=== PATIENT | male | born 1970 | race Caucasian/White ===

== ENCOUNTER 2023-06-05 12:28 | Inpatient (IN) ==
[2023-06-05 13:55] LABS: ABS Lymphocytes 0.2 10^3/uL (1.0-4.8); ABS Monocytes 0.1 10^3/uL (0.0-1.1); ABS Neutrophils 3.5 10^3/uL (1.5-7.6); Eosinophil % 0.3 %; Hematocrit 26.1 % (38-53); Lymphocyte % 5.6 %; Mean Corpuscular Hemoglobin 29.3 pg (27-33); Mean Corpuscular Hgb Conc 34.4 g/dL (31-36); Mean Corpuscular Volume 85.2 fL (80-97); Mean Platelet Volume 8.1 fL (7.5-11.2); Nucleated Red Blood Cells % 0.1 %/100WBC (0.0-0.8); Platelet Count 111 10^3/uL (150-450); Red Blood Count 3.06 10^6/uL (4.06-5.63); Red Cell Distribution Width 14.1 % (12-17); White Blood Count 3.9 10^3/uL (3.6-10.2)
[2023-06-05 14:15] LABS: Calcium 7.9 mg/dL (8.6-10.3); Creatinine, Serum 0.76 mg/dL (0.67-1.17); Globulin 3.1 g/dL (2-4); Magnesium 1.7 mg/dL (1.9-2.7); Total Bilirubin 0.7 mg/dL (0.2-1.0); Total Protein 6.1 g/dL (6.4-8.9); eGFR CKD-EPI 107.5 (>60)
[2023-06-05] MEDS ORDERED: Magnesium Sulfate 2 gm BAG 0 GM/0 ML BAG ONE (15:12)
[2023-06-05] MEDS ORDERED: NS ONE (15:12)
[2023-06-05] MEDS ORDERED: KCL ONE (15:12)
[2023-06-05] MEDS ORDERED: Ondansetron 4 mg VIAL 2 MG/ML 2 ml VIAL IV PRN (15:46)
[2023-06-05] MEDS ORDERED: Diphenoxylat/Atrop 2.5-0.025mg TAB PO PRN (15:49)
[2023-06-05] MEDS: NS 0.9% 1000 ml BAG 1,000 ML IV SCH (17:51)
[2023-06-05] MEDS: KCL 20 MEQ/100 ML IVPREMIX 20 MEQ/100 ML BAG IV SCH ×2 (20:32→22:39)
[2023-06-05] MEDS: Diphenoxylat/Atrop 2.5-0.025mg TAB PO SCH (22:39)
[2023-06-05] MEDS: [UNRECOGNIZED DRUG - OTHER] BOTH EYES SCH (22:40)
[2023-06-06] MEDS: NS 0.9% 1000 ml BAG 1,000 ML IV SCH ×2 (03:56→13:05)
[2023-06-06] MEDS: Diphenoxylat/Atrop 2.5-0.025mg TAB PO SCH ×3 (06:21→21:25)
[2023-06-06 07:29] LABS: Albumin 2.6 g/dL (3.2-5.2); Calcium 7.4 mg/dL (8.6-10.3); Creatinine, Serum 0.84 mg/dL (0.67-1.17); Globulin 2.7 g/dL (2-4); Magnesium 1.6 mg/dL (1.9-2.7); Potassium 3.6 mmol/L (3.5-5.0); Total Bilirubin 0.4 mg/dL (0.2-1.0); Total Protein 5.3 g/dL (6.4-8.9); eGFR CKD-EPI 104.3 (>60)
[2023-06-06 07:34] LABS: Hematocrit 22.7 % (38-53); Hemoglobin 7.7 g/dL (13.2-16.3); Mean Corpuscular Hemoglobin 29.3 pg (27-33); Mean Corpuscular Hgb Conc 34.2 g/dL (31-36); Mean Corpuscular Volume 85.7 fL (80-97); Red Blood Count 2.64 10^6/uL (4.06-5.63); Red Cell Distribution Width 14.1 % (12-17); White Blood Count 2.4 10^3/uL (3.6-10.2)
[2023-06-06 09:18] LABS: ABS Lymphocytes 0.2 10^3/uL (1.0-4.8); ABS Monocytes 0.2 10^3/uL (0.0-1.1); ABS Neutrophils 1.9 10^3/uL (1.5-7.6); Eosinophil % 0.5 %; Lymphocyte % 9.5 %; Mean Platelet Volume 7.9 fL (7.5-11.2); Nucleated Red Blood Cells % 0.1 %/100WBC (0.0-0.8); Platelet Count 83 10^3/uL (150-450)
[2023-06-06] MEDS: [UNRECOGNIZED DRUG - OTHER] BOTH EYES SCH ×2 (09:57→21:27)
[2023-06-06] MEDS: Magnesium Sulfate IV 1GM/100ML 1 GM/100 ML BAG IV SCH ×2 (13:05→14:10)
[2023-06-06] MEDS: Albuterol HFA INHALER 8 gm MDI INH PRN ×2 (14:36→23:13)
[2023-06-06] MEDS ORDERED: Gadoteridol (CONTRAST) 279.3 MG/ML 10 ML IV ONE (20:34)
[2023-06-07] MEDS: NS 0.9% 1000 ml BAG 1,000 ML IV SCH ×2 (00:07→00:43)
[2023-06-07] MEDS: Diphenoxylat/Atrop 2.5-0.025mg TAB PO SCH ×2 (05:35→15:04)
[2023-06-07 06:48] LABS: Hematocrit 19.5 % (38-53); Hemoglobin 6.7 g/dL (13.2-16.3); Mean Corpuscular Hemoglobin 29.3 pg (27-33); Mean Corpuscular Hgb Conc 34.3 g/dL (31-36); Mean Corpuscular Volume 85.3 fL (80-97); Mean Platelet Volume 8.4 fL (7.5-11.2); Platelet Count 84 10^3/uL (150-450); Red Blood Count 2.29 10^6/uL (4.06-5.63); White Blood Count 1.8 10^3/uL (3.6-10.2)
[2023-06-07 06:51] LABS: Albumin 2.5 g/dL (3.2-5.2); Calcium 7.5 mg/dL (8.6-10.3); Creatinine, Serum 0.72 mg/dL (0.67-1.17); Globulin 2.4 g/dL (2-4); Magnesium 1.9 mg/dL (1.9-2.7); Total Bilirubin 0.3 mg/dL (0.2-1.0); Total Protein 4.9 g/dL (6.4-8.9); eGFR CKD-EPI 109.2 (>60)
[2023-06-07] MEDS: [UNRECOGNIZED DRUG - OTHER] BOTH EYES SCH (07:41)
[2023-06-07] MEDS ORDERED: Potassium Chlor 20 meq TAB.ER PO ONE (07:51)
[2023-06-07] MEDS ORDERED: guaiFENesin 100 mg/5 ml LIQ unit dose cup PO PRN (07:57)
[2023-06-07] MEDS ORDERED: Remdesivir 100 mg Vial 200 MG in NS 0.9% 250 ml 210 ML IV ONE (09:00)
[2023-06-07] MEDS ORDERED: Enoxaparin 40 MG/0.4 ML SYR SUBCUT SCH (09:00)
[2023-06-07] MEDS: KCL 20 MEQ/100 ML IVPREMIX 20 MEQ/100 ML BAG IV SCH ×2 (09:15→12:46)
[2023-06-07 14:24] VITALS: BP 125/83
[2023-06-08] MEDS ORDERED: Remdesivir 100 mg Vial 100 MG in NS 0.9% 250 ml 230 ML IV SCH (09:00)
== END 2023-06-07 15:35 | disposition home or self-care (01) | DRG 137 ==
LOC: CHOA 12:28 → MED 17:39
PROVIDERS: ADMIT Internal Medicine Medical Oncology; ATTEND Internal Medicine Medical Oncology

== ENCOUNTER 2023-09-16 05:23 | Inpatient (IN) ==
[2023-09-16] MEDS: Etomidate 20 mg/10 ml 2 MG/ML 10 ml VIAL IV ONE (05:30)
[2023-09-16] MEDS ORDERED: Succinylcholine 200 mg VIAL 20 mg/ml 10 ml VIAL (200 mg) ONE (05:30)
[2023-09-16] MEDS ORDERED: Etomidate 40 mg/20 ml (2 MG/ML) 20 ml VIAL (40 mg) ONE (05:30)
[2023-09-16] MEDS ORDERED: Propofol 10 mg/ml 100 ML BTL 1,000 MG/100 ML BTL ONE (05:30)
[2023-09-16] MEDS ORDERED: fentaNYL 100 mcg/2 ml 50 MCG/ML VIAL ONE (05:30)
[2023-09-16] MEDS: Succinylcholine 200 mg VIAL 20 mg/ml 10 ml VIAL (200 mg) IV ONE (05:31)
[2023-09-16] MEDS: fentaNYL 100 mcg/2 ml 50 MCG/ML VIAL IV SLOW PU ONE (05:33)
[2023-09-16] MEDS: Propofol 10 mg/ml 100 ML BTL 1,000 MG/100 ML BTL IV SCH (05:34)
[2023-09-16] MEDS: Lactated Ringers 1000 ml BAG 1,000 ML IV ONE (05:51)
[2023-09-16 05:56] LABS: ABS Lymphocytes 0.2 10^3/uL (1.0-4.8); ABS Monocytes 0.9 10^3/uL (0.0-1.1); ABS Neutrophils 13.6 10^3/uL (1.5-7.6); Hematocrit 40.1 % (38-53); Hemoglobin 13.5 g/dL (13.2-16.3); Lymphocyte % 1.5 %; Mean Corpuscular Hgb Conc 33.7 g/dL (31-36); Mean Corpuscular Volume 92.2 fL (80-97); Mean Platelet Volume 8.7 fL (7.5-11.2); Platelet Count 156 10^3/uL (150-450); Red Blood Count 4.35 10^6/uL (4.06-5.63); Red Cell Distribution Width 14.4 % (12-17); White Blood Count 14.8 10^3/uL (3.6-10.2)
[2023-09-16 06:06] LABS: Activated Partial Thrombo Time 24.9 seconds (26.0-38.0); INR 1.27 (0.83-1.13)
[2023-09-16 06:34] LABS: Albumin 3.9 g/dL (3.2-5.2); Albumin/Globulin Ratio 1.4 (1-3); Calcium 9.5 mg/dL (8.6-10.3); Creatinine, Serum 0.79 mg/dL (0.67-1.17); Direct Bilirubin 0.3 mg/dL (0.03-0.18); Globulin 2.7 g/dL (2-4); HDL Cholesterol 64.5 mg/dL; Indirect Bilirubin 0.6 mg/dL (0.3-1.0); Potassium 4.5 mmol/L (3.5-5.0); Total Bilirubin 0.9 mg/dL (0.2-1.0); Total Protein 6.6 g/dL (6.4-8.9); eGFR CKD-EPI 106.2 (>60)
[2023-09-16 07:02] LABS: Magnesium 1.9 mg/dL (1.9-2.7)
[2023-09-16 07:10] LABS: Urine Appearance Clear; Urine Bilirubin Negative (Negative); Urine Blood 1+ (Negative); Urine Color Yellow; Urine Glucose Negative (Negative); Urine Ketones 2+ (Negative); Urine Nitrite Negative (Negative); Urine Protein 1+ (>=30 mg/dL) (Negative); Urine Specific Gravity 1.032 (1.002-1.030); Urine Urobilinogen Negative (Negative)
[2023-09-16 07:21] LABS: Urine Bacteria Absent /HPF (Absent); Urine Red Blood Cell 3+(>10/hpf) /HPF (0-Trace); Urine White Blood Cell Trace(0-5/hpf) /HPF (0-Trace)
[2023-09-16] MEDS: Chlorhexidine MOUTHWASH 0.12% 15 ML UDC TOPICAL SCH (09:14)
[2023-09-16] MEDS: Enoxaparin 40 MG/0.4 ML SYR SUBCUT SCH (10:20)
[2023-09-16] MEDS ORDERED: Atropine 1% (ORAL/SL) 15 ML BTL SL PRN (17:45)
[2023-09-16] MEDS ORDERED: LORazepam 2 mg VIAL 1 ml IV PUSH PRN (17:45)
[2023-09-16] MEDS: Scopolamine 1 mg/72hr PATCH TRANSDERM SCH (18:19)
[2023-09-16] MEDS: Morphine PCA ADULT 5 MG/ML 30 ML PCA SCH (19:52)
[2023-09-17 04:32] VITALS: BP 81/64
== END 2023-09-17 04:11 | disposition expired | DRG 862 ==
LOC: ED 05:23 → EDHOLD 07:24 → ICU 08:00
PROVIDERS: ADMIT Student in an Organized Health Care Education/Training Program; ATTEND Internal Medicine